=== PATIENT | male | born 1995 | race Caucasian/White ===

== ENCOUNTER 2019-09-03 04:11 | Emergency (ER) | payer SELFPAY ==
--- NOTE | 2019-09-03 08:54 | ER Document Report ---
HPI - HPI Time Seen by Provider: 09/03/19 08:15 Pain Level: 1 Context: Patient is a 24-year-old male who presents to the emergency department with a chief complaint of chills and body shakes that started in the middle of the night today. Patient states that he has had some congestion for the past 2 weeks. He also has complaints of green purulent drainage from his nose. Denies any past medical history. Patient states that he is worried that he may have diabetes. - CONSTITUTIONAL Constitutional: REPORTS: Chills. DENIES: Fever - EENT EENT: REPORTS: Nasal Drainage-Purulent, Congestion. DENIES: Sore Throat, Ear Pain, Nasal Drainage-Clear, Eye problems - NEURO Neurology: DENIES: Headache, Weakness, Vision blurred, Dizzinesss / Vertigo - RESPIRATORY Respiratory: REPORTS: Coughing - DERM Skin Color: Normal Skin Problems: None Past Medical History - General Information source: Patient - Social History Smoking Status: Former Smoker Family History: DM, Hypertension Patient has suicidal ideation: No Patient has homicidal ideation: No Past Surgical History: Reports: Hx Testicular Surgery - testicular torsion repair Vertical Provider Document - CONSTITUTIONAL Agree With Documented VS: Yes Exam Limitations: No Limitations General Appearance: No Apparent Distress - HEENT HEENT: Atraumatic, Normocephalic, PERRLA. negative: Pharyngeal Exudate, Pharyngeal Tenderness, Pharyngeal Erythema, Tympanic Membrane Red, Tympanic Membrane Bulging Notes: Tenderness to maxillary sinuses. - RESPIRATORY Respiratory: Breath Sounds Normal, No Respiratory Distress - CARDIOVASCULAR Cardiovascular: Regular Rate, Regular Rhythm Pulses: Normal: Radial - MUSCULOSKELETAL/EXTREMETIES Musculoskeletal/Extremeties: FROM - NEURO Level of Consciousness: Awake, Alert, Appropriate Motor/Sensory: No Motor Deficit, No Sensory Deficit - DERM Integumentary: Warm, Dry, No Rash Course - Re-evaluation Re-evalutation: 09/03/19 Patient's blood glucose is 109 here in the emergency department. His blood pressure is elevated and I informed him to have his blood pressure rechecked by a primary care provider, as I do not have a previous visit to compare his blood pressure to. I also informed him that the best way to control his blood pressure is to diet an exercise. He expressed understanding. As for his congestion, this is consistent with sinusitis. He will be started on Augmentin. His is in agreement with this plan. I have a low suspicion for any life threatening etiology at this time. Follow-up precautions were given. Verbal discharge instructions were given to the patient. They verbalized understanding. They are stable for discharge. - Vital Signs Vital signs: Temp Pulse Resp BP Pulse Ox 97.8 F 91 17 163/97 H 99 09/03/19 04:23 09/03/19 04:23 09/03/19 04:23 09/03/19 04:09/03/19 04:23 Discharge - Discharge Clinical Impression: Chills Sinusitis Qualifiers: Sinusitis location: maxillary Chronicity: acute Recurrence: non-recurrent Qualified Code(s): J01.00 - Acute maxillary sinusitis, unspecified Condition: Stable Disposition: HOME, SELF-CARE Additional Instructions: You were seen today in the emergency department for chills and congestion. You are being sent home with antibiotics for any sinus infection. Please make sure you take all your antibiotics as prescribed. Please follow-up with the clinics below in regards to this visit. You are also being started on tears and, medication to help with your runny nose. Prescriptions: Cetirizine HCl [All Day Allergy] 10 mg PO DAILY #30 tablet Amox Tr/Potassium Clavulanate [Augmentin 875-125 Tablet] 1 tab PO BID 10 Days #20 tablet Referrals: [facility] [Provider Group] - Follow up in 3-5 days [facility] [Provider Group] - Follow up in 3-5 days
[2019-09-03 09:39] VITALS: BP 134/89
== END 2019-09-03 09:41 | disposition home or self-care (01) ==
LOC: ER 04:11
DX: J01.00 Acute maxillary sinusitis, unspecified (principal); R68.83 Chills (without fever); M79.10 Myalgia, unspecified site; R09.81 Nasal congestion; R09.89 Other specified symptoms and signs involving the circulatory and respiratory systems; Z87.891 Personal history of nicotine dependence
CPT/HCPCS: 82962; 99283